=== PATIENT | female | born 1960 | race Caucasian/White ===

== ENCOUNTER 2020-08-30 10:52 | Outpatient (REF) | payer OTHER, SELFPAY | END 2020-08-30 10:53 | disposition home or self-care (01) | LOC: HO.LAB 10:52 | PROVIDERS: Visit Provider Internal Medicine | DX: Z20.828 Contact with and (suspected) exposure to other viral communicable diseases (principal) | CPT/HCPCS: C9803; U0003 ==

== ENCOUNTER 2020-11-03 11:24 | Outpatient (REF) | payer OTHER, SELFPAY | END 2020-11-03 11:25 | disposition home or self-care (01) | LOC: HO.LAB 11:24 | PROVIDERS: PCP Nurse Practitioner Family; Visit Provider Internal Medicine | DX: Z20.822 Contact with and (suspected) exposure to COVID-19 (principal) | CPT/HCPCS: 36415; C9803; U0003; U0005 ==

== ENCOUNTER 2021-06-06 12:21 | Emergency (ER) | payer OTHER, SELFPAY ==
--- NOTE | ~2021-06-06 | CT_ITS ---
EXAMINATION: CT ABDOMEN AND PELVIS WITH CONTRAST CLINICAL INFORMATION: Right CVA and right lower quadrant tenderness COMPARISON: Previous CT of the abdomen and pelvis June 2015 TECHNIQUE: Multidetector volumetric images were obtained from the superior aspect of the liver through the pubic symphysis following administration 85 mL of Omnipaque 350 intravenous contrast. Sagittal and coronal reformatted images were obtained on the technologist's workstation. Oral contrast: Yes This CT examination was performed using dose optimization techniques as appropriate, variously including the following: *Automated exposure control *Adjustment of mA and/or kV according to patient size (this includes techniques or standardized protocols for targeted exams where dose is matched to indication/reason for exam; i.e. extremities or head) *Use of iterative reconstruction technique DLP: 358 mGy-cm FINDINGS: LUNG BASES: There is scarring or subsegmental atelectasis at the left lung base. LIVER, GALLBLADDER, AND BILIARY TREE: There is a small 5 mm low-attenuation lesion in the right lobe of the liver axial image 6 series 3. This characterize due to small size. There are other several smaller liver lesions questionable for cysts in the posterior right lobe axial image 9 series 3, and anterior medial segment left lobe axial image 6 series 3 and 25 series 3. The gallbladder has been removed. There is no biliary duct dilatation. PANCREAS: Unremarkable. SPLEEN: Unremarkable. ADRENAL GLANDS: Unremarkable. KIDNEYS AND URETERS: There is a 3 x 4 cm cyst in the upper pole of the left kidney. There is right renal cortical thinning or scarring. There is a 5 mm low-attenuation lesion in the lateral upper pole of the right kidney axial image 19 series 3 that is stable and may represent a small cyst. There were several small areas of decreased cortical enhancement or decreased attenuation in the right kidney, the posterior mid to upper pole axial image 19 series 3 and in the lower pole for example axial image 26 series 3 anteriorly and 27 series 3 posteriorly. Findings are questionable for changes from infection. No renal stone is seen. No hydronephrosis or ureteral dilatation is seen. BLADDER: Unremarkable. GASTROINTESTINAL TRACT: There is mild diverticulosis of the colon. No evidence of diverticulitis is seen. There is fatty infiltration of the wall of the proximal right colon. This is a nonspecific finding but can be seen with sequelae of old colitis. No evidence of acute colitis is seen. Small and large bowel is otherwise unremarkable. The appendix is unremarkable. ABDOMINAL WALL: No significant hernia is appreciated. LYMPH NODES: Normal. VASCULAR: Unremarkable. PELVIC VISCERA: The uterus is deviated to the right. This is similar to prior exams. The uterus and adnexa are otherwise unremarkable. OSSEOUS STRUCTURES: Unremarkable. CT/CT abdomen pelvis w con IMPRESSION: Cortical thinning or scarring of the right kidney. Small areas of decreased cortical enhancement or decreased attenuation in the right kidney questionable for area of infection/pyelonephritis. Bilateral renal cysts. Diverticulosis of the colon. No evidence of diverticulitis. 5 mm low-attenuation lesion high in the right lobe liver. This is difficult to characterize due to small size. Other small liver lesions probably represent cysts.
[2021-06-06 13:58] VITALS: BP 126/70; PULSE 87; RESP 19; TEMP 36.9; O2SAT 94; BMI 20.7
--- NOTE | 2021-06-06 14:47 | ED_ITS ---
HPI - Extremity Problem General Chief complaint: Extremity Problem Stated complaint: hip pain Time Seen by Provider: 06/06/21 14:46 Source: patient Mode of arrival: ambulatory Limitations: no limitations History of Present Illness HPI Narrative: 60-year-old female presents with right flank pain that radiates to her right hip and her right lower abdomen. Patient has a history of kidney stone. Has had this pain for the past 2 or 3 days. The pain is very sharp. Patient reports fevers at night, says last night she had a fever of 104 F. She is nauseous and does not want to eat. Patient has had mild urinary symptoms, mild dysuria. No vomiting, no diarrhea Related Data Previous Rx's Medication Instructions Recorded levofloxacin 750 mg tablet 750 mg PO DAILY 7 Days #7 tab 06/06/21 Allergies Allergy/AdvReac Type Severity Reaction Status Date / Time codeine [Codeine] Allergy Mild VOMITING Verified 09/16/20 06:27 aspirin [ASPIRIN] Allergy Unknown STOMACH Verified 09/16/20 06:27 UPSET, nausea Review of Systems Constitutional: Constitutional: Denies body ache(s), Denies chills, Reports fatigue, Reports fever(s), Reports lethargy and Reports poor appetite Eyes: Eyes: Denies blurry vision and Denies change in vision ENT: Denies vertigo, Denies dizziness, Denies otalgia and Denies sore throat Cardiovascular: Cardiovascular: Denies chest pain and Denies dyspnea Respiratory: Respiratory: Denies chest congestion, Denies cough and Denies dyspnea Gastrointestinal: Gastrointestinal: Reports abdominal pain, Denies hematochezia, Denies coffee ground emesis, Denies diarrhea, Reports nausea and Denies vomiting Genitourinary: Genitourinary: Denies abnormal vaginal bleeding, Reports dysuria, Denies pelvic pain, Reports flank pain, Denies urinary incontinence and Reports urinary urgency Musculoskeletal: Comments: PAIN.radiating into right hip and right anterior thigh Integumentary/Breasts: Skin/Breast: Denies rash Neurologic: Denies confusion, Denies vertigo and Denies dizziness Psychiatric: Psychiatric: Denies confusion Endocrine: Endocrine: Reports fatigue PMFSH Past Medical History Surgical History History of bunionectomy History of hand surgery History of laparoscopic cholecystectomy History of lithotripsy History of tubal ligation Family History Family History Father CVD (cardiovascular disease) Hypertension Mother Hypertension Alzheimers disease Family/Other Diabetes Daughter In good health Son In good health Social History Social History Advance Directives: No Advance Directives Information Provided: No Physical Exam Vital Signs: Vital Signs: Last Vital Signs Temp 99.0 F 06/06/21 17:14 Pulse 75 06/06/21 17:14 Resp 16 06/06/21 17:14 BP 116/73 06/06/21 17:14 Pulse Ox 100 06/06/21 17:14 Body Mass Index 20.7 Const: General: No confusion Nutritional Appearance: well nourished Orientation/consciousness: No confusion Limitations: no limitations Eyes: Conjunctivae: conjunctivae normal Pupils: Equal, round and reactive pupils present EOM: EOMs intact bilaterally Neck: Neck: Yes full ROM, Yes no lymphadenopathy and Yes supple Resp: Effort & Inspection: normal respiratory effort and able to speak in complete sentences Auscultation: clear to auscultation bilaterally, no crackles, no rales, no rhonchi and no wheezes Cardio: Rate: regular rate Rhythm: regular rhythm Heart sounds: S1 normal heart sound present and S2 normal heart sound present GI: Inspection: Yes normal to inspection Palpation (GI): Soft to palpation, Tenderness to palpation present (GI) in the RLQ and at McBurney's point, Guarding due to palpation present (GI) in the RLQ and not rigid Percussion: Yes normal to percussion Auscultation: normal bowel sounds : General: Yes CVA tenderness on the right Back/Spine/Pelvis: Back: CVA tenderness Skin: General skin exam: no rashes or lesions noted Neuro: General: No confusion Cranial nerves: Yes Equal, round and reactive pupils present Extrem: General: Yes normal to inspection and Yes full ROM Psych: Appearance: grossly normal Affect: normal affect Attitude: cooperative Thought process: Normal thought process present Course Course Course Narrative: 60-year-old female presents for right leg pain and right groin pain, but on exam has right CVA tenderness and right lower quadrant tenderness. Reevaluation(s) Reevaluation #1: CT shows pyelonephritis. Urine positive for nitrites. Labs are unremarkable, was sent patient home with antibiotics if she can tolerate p.o. Reevaluation #2: Patient is able to eat crackers and drink pearl pramod, will send home with oral antibiotics and encouragement to rest and hydrate. Gave return precautions MDM - Extremity (Nontraumatic) Lab Data Result diagrams: 06/06/21 15:12 06/06/21 15:13 Labs: Lab Results 06/06/21 06/06/21 06/06/21 Range/Units 14:38 15:12 15:13 WBC 9.5 (4.8-10.8) X10*3/uL RBC 3.43 L (4.20-5.50) X10*6/uL Hgb 10.6 L (12.0-16.0) g/dl Hct 32.0 L (37-47) % MCV 93.3 (80-98) fL MCH 30.9 (27.0-33.0) pg MCHC 33.1 (31.0-35.0) g/dl RDW 12.9 (11.0-16.0) % Plt Count 294 (160-400) X10*3/uL MPV 11.3 (9.4-12.3) fL Immature Gran % (Auto) 0.2 (0.0-0.4) % Neut % (Auto) 59.8 (45-73) % Lymph % (Auto) 30.2 (20-40) % [place] % (Auto) 9.1 (2-11) % Eos % (Auto) 0.4 (0-4) % Baso % (Auto) 0.3 (0-2) % Lymph # (Auto) 2.9 (1.2-4.9) X10*3/uL [place] # (Auto) 0.9 (0.1-1.2) X10*3/uL Eos # (Auto) 0.0 (0.0-0.4) X10*3/uL Baso # (Auto) 0.0 (0.0-0.2) X10*3/uL Abs Immat Gran (auto) 0.02 (0.00-0.03) X10*3/uL Absolute Neuts (auto) 5.7 (2.0-8.3) X10*3/uL Absolute Nucleated RBC 0.000 (0.0-0.012) X10*3/uL Nucleated RBC % (auto) 0.0 (0.0-0.2) /100WBC Sodium 140 (135-145) mmol/L Potassium 4.5 (3.3-5.1) mmol/L Chloride 106 (96-108) mmol/L Carbon Dioxide 23 (22-29) mmol/L Anion Gap 16 (12-20) BUN 13 (9-16) mg/dL Creatinine 0.82 (0.5-1.4) mg/dL Estim Creat Clear Calc 66.0 Estimated GFR > 60 Random Glucose 100 (60-115) mg/dL Calcium 9.1 (8.4-10.2) mg/dL Total Bilirubin 0.5 (0.0-1.0) mg/dL AST 11 (5-31) U/L ALT 9 (0-31) U/L Alkaline Phosphatase 82 (39-117) U/L Total Protein 7.1 (6.5-8.0) g/dL Albumin 4.3 (3.5-5.0) g/dL Urine Color YELLOW Urine Appearance CLOUDY Urine pH 6.0 (5.0-8.0) Ur Specific [place] 1.015 (1.005-1.025) Urine Protein TRACE (NEG-TRACE) MG/DL Urine Glucose (UA) NEG (NEG) MG/DL Urine Ketones NEG (NEG) MG/DL Urine Blood TRACE (NEG) Urine Nitrite POS H (NEG) Ur Leukocyte Esterase 1+ H (NEG) Urine RBC 1-4 (0) /HPF Urine WBC 15-29 H (0-4) /HPF Ur Squamous Epith Cells 2+ /LPF Urine Bacteria 3+ /LPF Discharge Plan Discharge Clinical Impression: Pyelonephritis Patient Disposition: Home, Self-Care Instructions: Kidney Infection (ED) Additional Instructions: You have had your antibiotic for today. Please fill the prescription for antibiotics and take them for the next 5 days. Please return to the emergency room if you have nausea, vomiting, if you are unable to eat. You must be able to hold down your antibiotics. Please return to the emergency room if you have worsening abdominal pain, back pain, or fevers. Prescriptions: New levofloxacin 750 mg tablet 750 mg PO DAILY 7 Days Qty: 7 RF: 0 Stand Alone Forms: Work/School Release
[2021-06-06 14:55] LABS: Appearance Urine CLOUDY; Color Urine YELLOW; Glucose Urine UA NEG (NEG); Leukocyte Esterase Urine 1+ (NEG); Nitrite Urine POS (NEG); Specific Gravity - Urine 1.015 (1.005-1.025); UACC Culture Trigger YES; Urine Blood TRACE (NEG); Urine Ketones NEG (NEG); Urine Protein TRACE MG/DL (NEG-TRACE)
[2021-06-06 15:02] LABS: Bacteria Urine 3+ /LPF; Squamous Epithelial Cell Urine 2+ /LPF
[2021-06-06] MEDS: 0.9 % Sodium Chloride 1,000 ML 999 ML IV (15:16)
[2021-06-06] MEDS: Ketorolac Tromethamine 15 MG/ML VIAL IVPUSH (15:17)
[2021-06-06] MEDS: ondansetron HCL 4 MG/2 ML VIAL IVPUSH (15:17)
[2021-06-06 15:21] LABS: MANUAL DIFF FLAG NO
[2021-06-06 15:22] LABS: Basophils Percent Auto 0.3 % (0-2); Eosinophils Percent Auto 0.4 % (0-4); Hemoglobin 10.6 g/dl (12.0-16.0); Imm Gran Abs Auto 0.02 X10*3/uL (0.00-0.03); Imm Gran Pct Auto 0.2 % (0.0-0.4); Lymphocytes Absolute Auto 2.9 X10*3/uL (1.2-4.9); Lymphocytes Percent Auto 30.2 % (20-40); Mean Corpuscular HGB Conc 33.1 g/dl (31.0-35.0); Mean Corpuscular Hemoglobin 30.9 pg (27.0-33.0); Mean Corpuscular Volume 93.3 fL (80-98); Mean Platelet Volume 11.3 fL (9.4-12.3); Monocytes Absolute Auto 0.9 X10*3/uL (0.1-1.2); Monocytes Percent Auto 9.1 % (2-11); Neutrophils Absolute Auto 5.7 X10*3/uL (2.0-8.3); Neutrophils Percent Auto 59.8 % (45-73); Platelet Count 294 X10*3/uL (160-400); Red Blood Count 3.43 X10*6/uL (4.20-5.50); Red Cell Distribution Width 12.9 % (11.0-16.0); White Blood Count 9.5 X10*3/uL (4.8-10.8)
[2021-06-06 15:38] LABS: Alanine Aminotransferase 9 U/L (0-31); Albumin Level 4.3 g/dL (3.5-5.0); Alkaline Phosphatase 82 U/L (39-117); Anion Gap 16 (12-20); Aspartate Amino Transferase 11 U/L (5-31); Bilirubin Total 0.5 mg/dL (0.0-1.0); Blood Urea Nitrogen 13 mg/dL (9-16); Calcium 9.1 mg/dL (8.4-10.2); Carbon Dioxide 23 mmol/L (22-29); Chloride 106 mmol/L (96-108); Estimated Glomerular Filt Rate > 60; Glucose Random 100 mg/dL (60-115); Potassium 4.5 mmol/L (3.3-5.1); Sodium 140 mmol/L (135-145); Total Protein 7.1 g/dL (6.5-8.0)
[2021-06-06 15:56] VITALS: BP 116/60; PULSE 72; RESP 20; TEMP 36.9; O2SAT 100
[2021-06-06] MEDS: iohexoL 350 MG/ML 100 ML INFUS..BTL IV (16:13)
[2021-06-06 16:22] VITALS: RESP 18
[2021-06-06 17:14] VITALS: BP 116/73; PULSE 75; RESP 16; TEMP 37.2; O2SAT 100
[2021-06-06] MEDS: levoFLOXacin 750 MG TABLET PO (18:12)
== END 2021-06-06 18:20 | disposition home or self-care (01) ==
PROVIDERS: Physician Assistant; Emergency Provider Emergency Medicine; PCP Nurse Practitioner Family
DX: N12 Tubulo-interstitial nephritis, not specified as acute or chronic (principal); M25.551 Pain in right hip; R50.9 Fever, unspecified; Z79.899 Other long term (current) drug therapy
CPT/HCPCS: 36415; 74177; 80053; 81001; 85025; 87086; 87088; 87186; 96361; 96374; 96375; 99284; J1885; J2405; Q9967

== ENCOUNTER 2022-10-10 07:03 | Emergency (ER) | payer OTHER, SELFPAY ==
--- NOTE | ~2022-10-10 | XR_ITS ---
EXAMINATION: XR CHEST CLINICAL INFORMATION: Chest pain COMPARISON: 05/17/2020 TECHNIQUE: 2 views of the chest were obtained. FINDINGS: Biapical pleural-parenchymal scarring redemonstrated. No focal consolidation. No pleural effusion or pneumothorax. Normal heart size and pulmonary vascularity. XR/XR chest 2V IMPRESSION: No acute findings.
[2022-10-10 07:25] VITALS: BP 144/70; PULSE 88; RESP 16; O2SAT 99; BMI 21.9
[2022-10-10 07:36] LABS: MANUAL DIFF FLAG NO
[2022-10-10 07:38] LABS: Basophils Percent Auto 0.5 % (0-2); Eosinophils Absolute Auto 0.1 X10*3/uL (0.0-0.4); Eosinophils Percent Auto 1.3 % (0-4); Hematocrit 36.4 % (37.0-47.0); Hemoglobin 12.1 g/dl (12.0-16.0); Imm Gran Abs Auto 0.01 X10*3/uL (0.00-0.03); Imm Gran Pct Auto 0.2 % (0.0-0.4); Lymphocytes Absolute Auto 1.8 X10*3/uL (1.2-4.9); Lymphocytes Percent Auto 29.9 % (20-40); Mean Corpuscular HGB Conc 33.2 g/dl (31.0-35.0); Mean Corpuscular Volume 93.3 fL (80.0-98.0); Monocytes Absolute Auto 0.4 X10*3/uL (0.1-1.2); Neutrophils Absolute Auto 3.8 x10*3/uL (2.0-8.3); Neutrophils Percent Auto 62.1 % (45-73); Platelet Count 280 X10*3/uL (160-400); Red Cell Distribution Width 13.3 % (11.0-16.0); White Blood Count 6.2 X10*3/uL (4.8-10.8)
[2022-10-10 07:48] LABS: Appearance Urine Clear; Color Urine Yellow; Glucose Urine UA Negative (Negative); Leukocyte Esterase Urine Trace (Negative); Nitrite Urine Negative (Negative); Specific Gravity - Urine 1.015 (1.005-1.025); UMIC TRIGGER UACC YES; Urine Blood Small (1+) (Negative); Urine Ketones Negative (Negative); Urine Protein Negative (Neg-Trace)
[2022-10-10 07:53] LABS: Anion Gap 11 (12-20); Blood Urea Nitrogen 14 mg/dL (9-16); Calcium 9.2 mg/dL (8.4-10.2); Carbon Dioxide 25 mmol/L (22-29); Chloride 108 mmol/L (96-108); Creatinine Clr Calc Pharmacy 64.8; Estimated Glomerular Filt Rate > 60; Glucose Random 133 mg/dL (60-115); Potassium 4.4 mmol/L (3.3-5.1); Sodium 140 mmol/L (135-145)
[2022-10-10 08:01] LABS: WBC Urine 0-5 /HPF (0-5)
[2022-10-10 08:02] LABS: Bacteria Urine 1+ (None Seen); Hyaline Casts Urine 0-2 /LPF (0-2)
--- NOTE | 2022-10-10 08:23 | ECG_ITS ---
Test Reason : dizziness Blood Pressure : / mmHG Vent. Rate : 072 BPM Atrial Rate : 072 BPM P-R Int : 144 ms QRS Dur : 084 ms QT Int : 390 ms P-R-T Axes : 075 056 056 degrees QTc Int : 427 ms Normal sinus rhythm Normal ECG When compared to the previous EKG of No significant changes seen Referred By: Tayla Blank Electronically Signed By:Adam Borjas
--- NOTE | 2022-10-10 08:40 | PC.NURSE ---
Patient presents toED with report of headache nausea and dizziness has history of migraines denies diabetes history but reports checking BS this am is 190. No facial droop no deviation of tongue grasp equal 5/5 bilaterally. No drift noted. LS clear no respiratory distress noted denies chest pain is ambulatory at baseline with steady gait.
--- NOTE | 2022-10-10 09:42 | ED_ITS ---
HPI - General Adult General Chief complaint: Headache Stated complaint: Dizzy/Nausea/HBS Time Seen by Provider: 10/10/22 08:23 Source: patient and old records reviewed History of Present Illness HPI narrative: Patient with complaints of general malaise as well as headache for the past 2 days. She has been having some nausea and feeling shaky. She has a history of gestational diabetes but otherwise takes no medications and does not have a diagnosis of current diabetes. She has been checking her blood sugar which has been 190 at home. She is very concerned that she may have diabetes now. She works in a daycare with multiple viral exposures. She has a history of COVID 3 months ago which was mild. Headache is generalized. No focal weakness. Nausea but no vomiting. No diarrhea. No abdominal pain. No chest pain but she does have some right shoulder pain. No history of cardiac disease. She is a daily smoker since the age of 22. Related Data Previous Rx's Medication Instructions Recorded levofloxacin 750 mg tablet 750 mg PO DAILY 7 days #7 tabs 06/06/21 metformin 500 mg tablet 500 mg PO DAILY #30 tabs 10/10/22 Allergies Allergy/AdvReac Type Severity Reaction Status Date / Time codeine [Codeine] Allergy Mild VOMITING Verified 09/16/20 06:27 aspirin [ASPIRIN] Allergy Unknown STOMACH Verified 09/16/20 06:27 UPSET, nausea Review of Systems Constitutional: Comments: Chills without fever ENT: Comments: Headache and congestion Cardiovascular: Comments: Right shoulder pain. No chest pain. Mild cough without phlegm. Respiratory: Comments: No dyspnea Gastrointestinal: Comments: Nausea without vomiting. No diarrhea. No abdominal pain Genitourinary: Comments: No urinary symptoms Integumentary/Breasts: Comments: No rash Neurologic: Comments: Headache without focal weakness Endocrine: Comments: Recently mildly elevated glucose without polyuria or polydipsia [facility] Past Medical History Surgical History History of bunionectomy History of hand surgery History of laparoscopic cholecystectomy History of lithotripsy History of tubal ligation Family History Family History Father CVD (cardiovascular disease) Hypertension Mother Hypertension Alzheimers disease Family/Other Diabetes Daughter In good health Son In good health Social History Social History Alcohol intake: unknown Use of substances other than those prescribed or required for medical reasons: Unknown Advance Directives: No Advance Directives Information Provided: Yes Patient : No Physical Exam ED Vital Signs: Vital Signs - 24 hr 10/10/22 07:25 Pulse Rate 88 Respiratory Rate 16 Blood Pressure 144/70 H Pulse Oximetry 99 Oxygen Delivery Method Room Air BMI result Body Mass Index 21.9 Const Other: Awake alert. No acute distress. HENMT Other: TMs are normal bilaterally. Oropharynx is normal without erythema or tonsillar enlargement Neck Other: Full range of motion Resp Other: Clear and equal bilaterally without wheezes rales or rhonchi. Good air entry Cardio Other: Regular rate and rhythm without murmurs rubs or gallops GI Other: Soft nontender nondistended Skin Other: Warm pink and dry without rash Neuro Other: Nonfocal neuro exam Psych Other: Patient is anxious Medications Administered Discontinued Medications Generic Name Dose Route Start Last Admin Trade Name Freq PRN Reason Stop Dose Admin Acetaminophen 650 mg 10/10/22 09:40 10/10/22 09:49 Acetaminophen 325 Mg Tablet PO 10/10/22 09:41 650 mg ONCE ONE Administration Medical Decision Making Medical Decision Making [facility] Narrative: Patient with multiple symptoms including headache nausea and chills. Blood sugar has been mildly elevated recently although likely secondary to her clinical syndrome which is likely viral. It she has been having shoulder pain but no chest pain. Risk factors for cardiac etiologies of the symptoms would be smoking. She has a family history of diabetes but has not been diagnosed herself. 09:47. Workup so far shows a normal CBC and chemistries. Glucose is 133 here. No evidence for DKA or other significant diabetic related abnormality. Likely reactive hyperglycemia and possibly prediabetes. Likely all precipitated by viral syndrome. Will add on troponin however. Will also add on chest x-ray. Her EKG is normal sinus rhythm without ischemic changes 10:28. X-ray on my interpretation is normal 11:02. Viral screen is negative for COVID-19, RSV, influenza a and B. Troponin is negative. 11:38. Official x-ray reading is also normal. She is stable for discharge home I discussed with her the plan. She is still nervous about her recently elevated blood sugar. She is likely in the prediabetes phase. She would like to start medication. I think low-dose metformin at this point is reasonable as long she is able to follow-up with her PCP for further guidelines and recommendations. Lab Data 10/10/22 07:32 10/10/22 07:32 Labs: Lab Results 10/10/22 10/10/22 10/10/22 Range/Units 07:32 07:32 07:39 WBC 6.2 (4.8-10.8) X10*3/uL RBC 3.90 L (4.20-5.50) X10*6/uL Hgb 12.1 (12.0-16.0) g/dl Hct 36.4 L (37.0-47.0) % MCV 93.3 (80.0-98.0) fL MCH 31.0 (27.0-33.0) pg MCHC 33.2 (31.0-35.0) g/dl RDW 13.3 (11.0-16.0) % Plt Count 280 (160-400) X10*3/uL MPV 11.0 (9.4-12.3) fL Immature Gran % (Auto) 0.2 (0.0-0.4) % Neut % (Auto) 62.1 (45-73) % Lymph % (Auto) 29.9 (20-40) % [place] % (Auto) 6.0 (2-11) % Eos % (Auto) 1.3 (0-4) % Baso % (Auto) 0.5 (0-2) % Lymph # (Auto) 1.8 (1.2-4.9) X10*3/uL [place] # (Auto) 0.4 (0.1-1.2) X10*3/uL Eos # (Auto) 0.1 (0.0-0.4) X10*3/uL Baso # (Auto) 0.0 (0.0-0.2) X10*3/uL Abs Immat Gran (auto) 0.01 (0.00-0.03) X10*3/uL Absolute Neuts (auto) 3.8 (2.0-8.3) x10*3/uL Absolute Nucleated RBC 0.000 (0.0-0.012) X10*3/uL Nucleated RBC % (auto) 0.0 (0.0-0.2) /100WBC Sodium 140 (135-145) mmol/L Potassium 4.4 (3.3-5.1) mmol/L Chloride 108 (96-108) mmol/L Carbon Dioxide 25 (22-29) mmol/L Anion Gap 11 L (12-20) BUN 14 (9-16) mg/dL Creatinine 0.82 (0.5-1.4) mg/dL Estim Creat Clear Calc 64.8 Estimated GFR > 60 Random Glucose 133 H (60-115) mg/dL Calcium 9.2 (8.4-10.2) mg/dL Troponin I High Sens (<3.5-17.0) ng/L Urine Color Yellow Urine Appearance Clear Urine pH 6.0 (5.0-9.0) Ur Specific [place] 1.015 (1.005-1.025) Urine Protein Negative (Neg-Trace) mg/dL Urine Glucose (UA) Negative (Negative) mg/dL Urine Ketones Negative (Negative) mg/dL Urine Blood Small (1+) H (Negative) Urine Nitrite Negative (Negative) Ur Leukocyte Esterase Trace H (Negative) Urine RBC 3-5 H (0-2) /HPF Urine WBC 0-5 (0-5) /HPF Ur Squamous Epith Cells 11-20 (0-2) /HPF Urine Bacteria 1+ (None Seen) Hyaline Casts 0-2 (0-2) /LPF Influenza Type A (PCR) (Negative) Influenza Type B (PCR) (Negative) RSV RNA Qual (PCR) (Negative) SARS-CoV-2 RNA (RT-PCR) (Negative) 10/10/22 10/10/22 Range/Units 09:52 09:52 WBC (4.8-10.8) X10*3/uL RBC (4.20-5.50) X10*6/uL Hgb (12.0-16.0) g/dl Hct (37.0-47.0) % MCV (80.0-98.0) fL MCH (27.0-33.0) pg MCHC (31.0-35.0) g/dl RDW (11.0-16.0) % Plt Count (160-400) X10*3/uL MPV (9.4-12.3) fL Immature Gran % (Auto) (0.0-0.4) % Neut % (Auto) (45-73) % Lymph % (Auto) (20-40) % [place] % (Auto) (2-11) % Eos % (Auto) (0-4) % Baso % (Auto) (0-2) % Lymph # (Auto) (1.2-4.9) X10*3/uL [place] # (Auto) (0.1-1.2) X10*3/uL Eos # (Auto) (0.0-0.4) X10*3/uL Baso # (Auto) (0.0-0.2) X10*3/uL Abs Immat Gran (auto) (0.00-0.03) X10*3/uL Absolute Neuts (auto) (2.0-8.3) x10*3/uL Absolute Nucleated RBC (0.0-0.012) X10*3/uL Nucleated RBC % (auto) (0.0-0.2) /100WBC Sodium (135-145) mmol/L Potassium (3.3-5.1) mmol/L Chloride (96-108) mmol/L Carbon Dioxide (22-29) mmol/L Anion Gap (12-20) BUN (9-16) mg/dL Creatinine (0.5-1.4) mg/dL Estim Creat Clear Calc Estimated GFR Random Glucose (60-115) mg/dL Calcium (8.4-10.2) mg/dL Troponin I High Sens < 3.5 (<3.5-17.0) ng/L Urine Color Urine Appearance Urine pH (5.0-9.0) Ur Specific [place] (1.005-1.025) Urine Protein (Neg-Trace) mg/dL Urine Glucose (UA) (Negative) mg/dL Urine Ketones (Negative) mg/dL Urine Blood (Negative) Urine Nitrite (Negative) Ur Leukocyte Esterase (Negative) Urine RBC (0-2) /HPF Urine WBC (0-5) /HPF Ur Squamous Epith Cells (0-2) /HPF Urine Bacteria (None Seen) Hyaline Casts (0-2) /LPF Influenza Type A (PCR) NEGATIVE (Negative) Influenza Type B (PCR) NEGATIVE (Negative) RSV RNA Qual (PCR) NEGATIVE (Negative) SARS-CoV-2 RNA (RT-PCR) NEGATIVE (Negative) Discharge Plan Discharge Clinical Impression: Headache, Acute viral syndrome, Pre-diabetes Patient Disposition: Home, Self-Care Instructions: Acute Headache (ED), Viral Syndrome (ED), Prediabetes (ED) Additional Instructions: Continue to monitor your blood sugars twice daily. Write the numbers down and be sure to take them with you to your next primary care appointment. We are starting you on low-dose metformin which is to help control your blood sugars. You may need to have this discontinued or adjusted once to see her primary care physician Prescriptions: New metformin 500 mg tablet 500 mg PO DAILY Qty: 30 0RF No Action levofloxacin 750 mg tablet 750 mg PO DAILY 7 Days Qty: 7 0RF Stand Alone Forms: Work/School Release
[2022-10-10] MEDS: Acetaminophen 325 MG TABLET 650 MG PO (09:49)
[2022-10-10 10:44] LABS: Troponin-I High Sensitivity < 3.5 ng/L (<3.5-17.0)
[2022-10-10 10:48] LABS: Influenza A PCR NEGATIVE (Negative); Influenza B PCR NEGATIVE (Negative); Resp Syncy Virus RNA Qual PCR NEGATIVE (Negative); SARS COV2 PCR INHOUSE NEGATIVE (Negative)
[2022-10-10 12:02] VITALS: BP 130/64; RESP 18
== END 2022-10-10 12:05 | disposition home or self-care (01) ==
PROVIDERS: Emergency Provider Emergency Medicine
DX: B34.9 Viral infection, unspecified (principal); R51.9 Headache, unspecified; R73.03 Prediabetes; Z20.822 Contact with and (suspected) exposure to COVID-19; Z20.828 Contact with and (suspected) exposure to other viral communicable diseases
CPT/HCPCS: 0241U; 36415; 71046; 80048; 81001; 84484; 85025; 93005; 99283; 99285

== ENCOUNTER 2022-12-15 07:08 | Outpatient (REF) | payer OTHER, SELFPAY ==
[2022-12-15 07:21] LABS: MANUAL DIFF FLAG NO
[2022-12-15 07:23] LABS: Basophils Percent Auto 0.7 % (0-2); Eosinophils Absolute Auto 0.1 X10*3/uL (0.0-0.4); Eosinophils Percent Auto 1.3 % (0-4); Hematocrit 35.8 % (37.0-47.0); Hemoglobin 11.7 g/dl (12.0-16.0); Imm Gran Abs Auto 0.01 X10*3/uL (0.00-0.03); Imm Gran Pct Auto 0.2 % (0.0-0.4); Lymphocytes Absolute Auto 1.9 X10*3/uL (1.2-4.9); Lymphocytes Percent Auto 31.8 % (20-40); Mean Corpuscular HGB Conc 32.7 g/dl (31.0-35.0); Mean Corpuscular Hemoglobin 30.8 pg (27.0-33.0); Mean Corpuscular Volume 94.2 fL (80.0-98.0); Mean Platelet Volume 10.8 fL (9.4-12.3); Monocytes Absolute Auto 0.4 X10*3/uL (0.1-1.2); Monocytes Percent Auto 6.2 % (2-11); Neutrophils Absolute Auto 3.7 x10*3/uL (2.0-8.3); Neutrophils Percent Auto 59.8 % (45-73); Platelet Count 306 X10*3/uL (160-400); Red Cell Distribution Width 13.1 % (11.0-16.0); White Blood Count 6.1 X10*3/uL (4.8-10.8)
[2022-12-15 08:11] LABS: Alanine Aminotransferase 12 U/L (0-31); Albumin Level 4.4 g/dL (3.5-5.0); Alkaline Phosphatase 67 U/L (39-117); Anion Gap 11 (12-20); Aspartate Amino Transferase 12 U/L (5-31); Bilirubin Total 0.5 mg/dL (0.0-1.0); Blood Urea Nitrogen 16 mg/dL (9-16); Calcium 9.1 mg/dL (8.4-10.2); Carbon Dioxide 24 mmol/L (22-29); Chloride 110 mmol/L (96-108); Cholesterol 152 mg/dL; Estimated Glomerular Filt Rate > 60; Glucose Random 115 mg/dL (60-115); HDL Cholesterol 50 mg/dL; LDL Cholesterol Calculated 95 mg/dl; Potassium 4.4 mmol/L (3.3-5.1); Sodium 141 mmol/L (135-145); Total Protein 6.5 g/dL (6.5-8.0); Triglycerides 37 mg/dL
[2022-12-15 09:37] LABS: Creatinine Urine 126.88 mg/dL; Microalbum/Creatinine Ratio Ur 19.7 ug/mg cr
== END 2022-12-15 07:09 | disposition home or self-care (01) ==
LOC: HO.LAB 07:08
PROVIDERS: PCP Internal Medicine; Visit Provider Internal Medicine
DX: Z00.00 Encounter for general adult medical examination without abnormal findings (principal); Z13.31 Encounter for screening for depression; E11.9 Type 2 diabetes mellitus without complications
CPT/HCPCS: 36415; 80053; 80061; 82043; 85025

== ENCOUNTER → 2023-01-30 12:20 | Outpatient (BNVA) | payer OTHER, SELFPAY | PROVIDERS: PCP Internal Medicine; Visit Provider Internal Medicine | DX: Z01.818 Encounter for other preprocedural examination (principal) | CPT/HCPCS: 99202 ==

== ENCOUNTER 2023-03-24 09:14 | Outpatient (REF) | payer OTHER, SELFPAY ==
[2023-03-24 10:26] LABS: Estimated Average Glucose 114 mg/dL; Hemoglobin A1c % 5.6 %
[2023-03-24 10:52] LABS: Alanine Aminotransferase 14 U/L (0-31); Albumin Level 4.5 g/dL (3.5-5.0); Alkaline Phosphatase 83 U/L (39-117); Anion Gap 14 (12-20); Aspartate Amino Transferase 13 U/L (5-31); Bilirubin Total 0.9 mg/dL (0.0-1.0); Blood Urea Nitrogen 12 mg/dL (9-16); Calcium 9.7 mg/dL (8.4-10.2); Carbon Dioxide 23 mmol/L (22-29); Chloride 109 mmol/L (96-108); Cholesterol 111 mg/dL; Estimated Glomerular Filt Rate > 60; Glucose Random 127 mg/dL (60-115); HDL Cholesterol 43 mg/dL; LDL Cholesterol Calculated 57 mg/dl; Potassium 3.9 mmol/L (3.3-5.1); Sodium 142 mmol/L (135-145); Total Protein 7.3 g/dL (6.5-8.0); Triglycerides 58 mg/dL
== END 2023-03-24 09:15 | disposition home or self-care (01) ==
LOC: HO.LAB 09:14
PROVIDERS: PCP Internal Medicine; Visit Provider Internal Medicine
DX: E11.9 Type 2 diabetes mellitus without complications (principal); E78.00 Pure hypercholesterolemia, unspecified
CPT/HCPCS: 36415; 80053; 80061; 83036

== ENCOUNTER 2024-01-30 12:31 | Outpatient (REF) | payer OTHER, SELFPAY ==
[2024-01-30 14:06] LABS: Estimated Average Glucose 123 mg/dL; Hemoglobin A1c % 5.9 % (<6.0)
[2024-01-30 14:40] LABS: Alanine Aminotransferase 17 U/L (0-31); Albumin Level 4.5 g/dL (3.5-5.0); Alkaline Phosphatase 73 U/L (39-117); Anion Gap 15 (12-20); Aspartate Amino Transferase 15 U/L (5-31); Bilirubin Total 0.5 mg/dL (0.0-1.0); Blood Urea Nitrogen 19 mg/dL (9-16); Carbon Dioxide 22 mmol/L (22-29); Chloride 109 mmol/L (96-108); Estimated Glomerular Filt Rate > 60; Glucose Random 97 mg/dL (60-115); Potassium 4.5 mmol/L (3.3-5.1); Sodium 141 mmol/L (135-145); Total Protein 7.4 g/dL (6.5-8.0)
[2024-01-30 14:58] LABS: Thyroid Stimulating Hormone 0.88 uIU/mL (0.32-4.0)
== END 2024-01-30 12:32 | disposition home or self-care (01) ==
LOC: HO.LAB 12:31
PROVIDERS: PCP Internal Medicine; Visit Provider Internal Medicine
DX: E11.9 Type 2 diabetes mellitus without complications (principal); R63.5 Abnormal weight gain
CPT/HCPCS: 36415; 80053; 83036; 84443

== ENCOUNTER 2024-05-31 09:46 | Outpatient (REF) | payer OTHER, SELFPAY ==
[2024-05-31 10:18] LABS: Estimated Average Glucose 123 mg/dL; Hemoglobin A1c % 5.9 % (<6.0)
[2024-05-31 10:49] LABS: Alanine Aminotransferase 17 U/L (0-31); Albumin Level 4.3 g/dL (3.5-5.0); Alkaline Phosphatase 70 U/L (39-117); Anion Gap 11 (12-20); Aspartate Amino Transferase 13 U/L (5-31); Bilirubin Total 0.4 mg/dL (0.0-1.0); Blood Urea Nitrogen 21 mg/dL (9-16); Carbon Dioxide 24 mmol/L (22-29); Chloride 111 mmol/L (96-108); Cholesterol 150 mg/dL (<200); Estimated Glomerular Filt Rate > 60; Glucose Fasting 120 mg/dL (60-99); HDL Cholesterol 48 mg/dL (>40); LDL Cholesterol Calculated 94 mg/dL (<100); Sodium 142 mmol/L (135-145); Total Protein 6.9 g/dL (6.5-8.0); Triglycerides 44 mg/dL (<150)
[2024-05-31 10:58] LABS: Creatinine Urine 173.12 mg/dL; Microalbum/Creatinine Ratio Ur 24.8 ug/mg cr (<30)
== END 2024-05-31 09:47 | disposition home or self-care (01) ==
LOC: HO.LAB 09:46
PROVIDERS: PCP Internal Medicine; Visit Provider Internal Medicine
DX: Z00.00 Encounter for general adult medical examination without abnormal findings (principal); E11.9 Type 2 diabetes mellitus without complications; E78.00 Pure hypercholesterolemia, unspecified; I10 Essential (primary) hypertension; Z72.0 Tobacco use
CPT/HCPCS: 36415; 80053; 80061; 82043; 82570; 83036

== ENCOUNTER 2024-11-29 10:10 | Outpatient (REF) | payer OTHER, SELFPAY ==
[2024-11-29 11:06] LABS: Estimated Average Glucose 128 mg/dL; Hemoglobin A1C 141.7935 umol/L; Hemoglobin A1c % 6.1 % (<6.0)
[2024-11-29 11:09] LABS: Alanine Aminotransferase 24 U/L (0-31); Albumin Level 4.4 g/dL (3.5-5.0); Alkaline Phosphatase 81 U/L (39-117); Anion Gap 12 (12-20); Aspartate Amino Transferase 19 U/L (5-31); Bilirubin Total 0.7 mg/dL (0.0-1.0); Blood Urea Nitrogen 13 mg/dL (9-16); Calcium 9.2 mg/dL (8.4-10.2); Carbon Dioxide 25 mmol/L (22-29); Chloride 109 mmol/L (96-108); Estimated Glomerular Filt Rate > 60; Glucose Random 128 mg/dL (60-115); Potassium 4.6 mmol/L (3.3-5.1); Sodium 141 mmol/L (135-145); Total Protein 7.6 g/dL (6.5-8.0)
== END 2024-11-29 10:11 | disposition home or self-care (01) ==
LOC: HO.LAB 10:10
PROVIDERS: PCP Internal Medicine; Visit Provider Internal Medicine
DX: E11.9 Type 2 diabetes mellitus without complications (principal); E78.00 Pure hypercholesterolemia, unspecified; I10 Essential (primary) hypertension; J02.9 Acute pharyngitis, unspecified; Z72.0 Tobacco use
CPT/HCPCS: 36415; 80053; 83036

== ENCOUNTER 2025-03-03 06:32 | Outpatient (REF) | payer OTHER, SELFPAY ==
[2025-03-03 07:28] LABS: Estimated Average Glucose 131 mg/dL; Hemoglobin A1c % 6.2 % (<6.0)
[2025-03-03 08:00] LABS: Alanine Aminotransferase 27 U/L (0-31); Albumin Level 4.6 g/dL (3.5-5.0); Alkaline Phosphatase 79 U/L (39-117); Anion Gap 13 (12-20); Aspartate Amino Transferase 22 U/L (5-31); Bilirubin Total 0.5 mg/dL (0.0-1.0); Blood Urea Nitrogen 19 mg/dL (9-16); Calcium 9.3 mg/dL (8.4-10.2); Carbon Dioxide 24 mmol/L (22-29); Chloride 110 mmol/L (96-108); Estimated Glomerular Filt Rate > 60; Glucose Random 135 mg/dL (60-115); Potassium 3.9 mmol/L (3.3-5.1); Sodium 143 mmol/L (135-145)
[2025-03-03 08:07] LABS: Thyroid Stimulating Hormone 1.78 uIU/mL (0.32-4.0)
== END 2025-03-03 06:33 | disposition home or self-care (01) ==
LOC: HO.LAB 06:32
PROVIDERS: PCP Internal Medicine; Visit Provider Internal Medicine
DX: E11.9 Type 2 diabetes mellitus without complications (principal); E78.00 Pure hypercholesterolemia, unspecified; I10 Essential (primary) hypertension; L98.8 Other specified disorders of the skin and subcutaneous tissue; Z72.0 Tobacco use
CPT/HCPCS: 36415; 80053; 83036; 84443

== ENCOUNTER 2025-04-14 14:16 | Outpatient (REF) | payer OTHER, SELFPAY | END 2025-04-14 14:17 | disposition home or self-care (01) | LOC: HO.MAMMO 14:16 | PROVIDERS: PCP Internal Medicine; Visit Provider Internal Medicine | DX: Z12.31 Encounter for screening mammogram for malignant neoplasm of breast (principal) | CPT/HCPCS: 77063; 77067 ==

== ENCOUNTER → 2025-04-14 14:30 | Outpatient (BNV) | payer OTHER, SELFPAY | PROVIDERS: PCP Internal Medicine; Visit Provider Internal Medicine | DX: Z12.31 Encounter for screening mammogram for malignant neoplasm of breast (principal) | CPT/HCPCS: 77063; 77067 ==

== ENCOUNTER 2025-06-03 07:13 | Outpatient (REF) | payer OTHER, SELFPAY ==
[2025-06-03 09:21] LABS: Hemoglobin A1C 147.4706 umol/L; Total Hemoglobin (HGBA1C) 3167.8147 umol/L
[2025-06-03 09:41] LABS: Alanine Aminotransferase 36 U/L (0-31); Albumin Level 4.5 g/dL (3.5-5.0); Alkaline Phosphatase 91 U/L (39-117); Anion Gap 11 (12-20); Aspartate Amino Transferase 26 U/L (5-31); Blood Urea Nitrogen 14 mg/dL (9-16); Calcium 8.7 mg/dL (8.4-10.2); Carbon Dioxide 23 mmol/L (22-29); Chloride 111 mmol/L (96-108); Cholesterol 173 mg/dL (<200); Estimated Glomerular Filt Rate > 60; HDL Cholesterol 48 mg/dL (>40); Potassium 4.1 mmol/L (3.3-5.1); Sodium 141 mmol/L (135-145); Total Protein 6.9 g/dL (6.5-8.0); Triglycerides 67 mg/dL (<150)
== END 2025-06-03 07:14 | disposition home or self-care (01) ==
LOC: HO.LAB 07:13
PROVIDERS: PCP Internal Medicine; Visit Provider Internal Medicine
DX: Z00.00 Encounter for general adult medical examination without abnormal findings (principal); E11.9 Type 2 diabetes mellitus without complications; E78.00 Pure hypercholesterolemia, unspecified; R80.8 Other proteinuria; Z72.0 Tobacco use
CPT/HCPCS: 36415; 80053; 80061; 83036

== ENCOUNTER 2025-06-29 10:50 | Outpatient (AMB) | payer OTHER, SELFPAY ==
--- NOTE | 2025-06-29 11:01 | A.OFFVIS_ITS ---
Vital Signs 06/29/25 11:02 Height 5 ft 5 in Weight 149 lb 14.629 oz BMI 24.9 BP 126/62 Blood Pressure Location Lt brachial Position Sitting Pulse 89 Intake Visit Reasons: colo screen never had done l/s 2022 Intake Note: Judie presents to in office visit today for colonoscopy screening. CC: Patient reports a recent episode of a small amount of bright red blood with BM. Denies other GI symptoms. Apartment Groundskeeper Required: Yes Apartment Groundskeeper Language: Tablet Machine Operator Services: Apartment Groundskeeper Offered & Declined Apartment Groundskeeper Name: Boyfriend Accompanied by: Boyfriend Allergies codeine (Codeine) Allergy (Mild, Verified 06/29/25 11:16) VOMITING almond Allergy (Unknown, Verified 06/29/25 11:16) Anaphylaxis aspirin (ASPIRIN) Allergy (Unknown, Verified 06/29/25 11:16) STOMACH UPSET, nausea peanut Allergy (Unknown, Verified 06/29/25 11:16) Anaphylaxis walnut Allergy (Unknown, Verified 06/29/25 11:16) Anaphylaxis HPI Comments Details: 62 year old female presenting to the office for discussion of colon cancer screening. Patient is at average risk of colon cancer due to no positive family history of colon cancer in first degree relatives. Patient does not have any other gastrointestinal symptoms to include abdominal pain, nausea, vomiting, diarrhea, blood in stool, weight loss. 06/29/25: Patient was lost to follow-up. Presenting today with her spouse. Reports he had colonoscopy done recently, and she now feels much more comfortable to schedule this, as she was previously very apprehensive about the anesthesia as well as the entire procedure. No acute gastrointestinal symptoms including abdominal pain, nausea, vomiting, diarrhea or blood in stool. No family history of colon cancer in 1st degree relatives. FORMERLY [facility] Surgical History History of hand surgery History of lithotripsy History of bunionectomy History of tubal ligation History of laparoscopic cholecystectomy Family History Father CVD (cardiovascular disease) Hypertension Mother Hypertension Alzheimers disease Family/Other Diabetes Daughter In good health Son In good health Social History Alcohol intake: never Patient Tobacco Use Status: Current everyday Tobacco user Tobacco use type: Cigarette Use of substances other than those prescribed or required for medical reasons: No Review of Systems Const All systems reviewed & are unremarkable except as noted in HPI and below Physical Exam Exam Exam: No apparent distress Nonicteric Abdomen soft, nondistended Alert and oriented x3, normal gait Vital Signs: Last Vital Signs Pulse 89 06/29/25 11:02 BP 126/62 06/29/25 11:02 BMI result Body Mass Index 24.9 Assessment & Plan Assessment & Plan (1) Colon cancer screening: Code(s): Z12.11 - Encounter for screening for malignant neoplasm of colon Category: Medical Plan: Will book for elective colonoscopy for CRC screening. Split prep instructions reviewed and handout provided. Pt aware to hold metformin the day of. Follow up after colo as needed. Orders: Referrals GI Procedure Notification Z12.11 - Encounter for screening for malignant neoplasm of colon Coding Level of Care Code Est Pt Level 3 (39460) Diagnoses Colon cancer screening Z12.11
[2025-06-29 11:02] VITALS: BP 126/62; PULSE 89; BMI 24.9
== END 2025-06-29 11:26 | disposition home or self-care (01) ==
LOC: HO.HGI 10:51
PROVIDERS: PCP Internal Medicine; Visit Provider Internal Medicine
DX: Z01.818 Encounter for other preprocedural examination (principal); Z12.11 Encounter for screening for malignant neoplasm of colon
CPT/HCPCS: 99213

== ENCOUNTER → 2025-06-29 10:50 | Outpatient (BNVA) | payer OTHER, SELFPAY | PROVIDERS: PCP Internal Medicine; Visit Provider Internal Medicine | DX: Z01.818 Encounter for other preprocedural examination (principal) | CPT/HCPCS: 99212 ==